=== PATIENT | male | born 1950 | race Caucasian/White ===

== ENCOUNTER 2019-11-06 17:05 | Inpatient (IN) | payer OTHER ==
[~2019-11-06] VITALS: Ht 185.4 cm; Wt 127.0 kg
[2019-11-06 17:14] VITALS: BP 111/60
[2019-11-06 17:48] LABS: HEMATOCRIT 45.9 % (42.0-52.0); HEMOGLOBIN 16.2 gm/dL (14.0-18.0); MCH 31.8 pg (26.0-34.0); MCHC 35.2 g/dL (28.0-37.0); MCV 90.1 fL (80.0-100.0); MPV 8.2 fl. (7.2-11.1); NUCLEATED RBCS 0 /100WBC; PLATELET COUNT* 264 thou/uL (150-400); RBC 5.09 mil/uL (4.50-6.00); RDW-CV 13.3 % (10.5-14.5); WBC 19.3 thou/uL (4.0-11.0)
[2019-11-06 17:48] LABS: URINE BILIRUBIN NEGATIVE (Negative); URINE BLOOD 1+ (Negative); URINE CLARITY CLEAR; URINE COLOR YELLOW; URINE GLUCOSE-RANDOM NEGATIVE (Negative); URINE KETONES NEGATIVE (Negative); URINE LEUKOCYTES-REFLEX NEGATIVE (Negative); URINE NITRITE-REFLEX NEGATIVE (Negative); URINE PROTEIN 1+ (Negative); URINE SPECIFIC GRAVITY 1.025 (1.005-1.030)
[2019-11-06 17:56] LABS: SQUAMOUS 0-3 Few /LPF (0-3)
[2019-11-06 17:57] LABS: CRYSTALS None Seen /LPF (None Seen); HYALINE CASTS 0-3 Few /LPF (None Seen); URINE RBC 0-2 Rare /HPF (0-2); URINE WBC-REFLEX 0-5 Rare /HPF (0-5)
[2019-11-06 17:58] LABS: BACTERIA-REFLEX 1-9 Few /HPF (None Seen); MUCUS 0-3 Light strn/LPF (None Seen)
[2019-11-06 18:01] LABS: CALCIUM 8.6 mg/dL (8.5-10.1); POTASSIUM 3.2 mmol/L (3.5-5.1)
[2019-11-06 18:05] LABS: INFLUENZA A ANTIGEN Negative (Negative); INFLUENZA B ANTIGEN Negative (Negative)
[2019-11-06 18:06] LABS: ALBUMIN 3.3 g/dL (3.4-5.0); TOTAL PROTEIN 7.2 g/dL (6.4-8.2)
[2019-11-06 18:21] LABS: ABSOLUTE LYMPHOCYTES 0.8 thou/uL (0.8-5.3); ABSOLUTE MONOCYTES 0.8 thou/uL (0.0-1.2); ABSOLUTE NEUTROPHILS 17.8 thou/uL (1.6-8.1); PLATELET ESTIMATE ADEQUATE
[2019-11-06 20:34] VITALS: BP 114/67
[2019-11-06 21:00] VITALS: BP 111/72
[2019-11-07] VITALS (19 sets, daily range): BP systolic 109–149; BP diastolic 47–89
[2019-11-07 09:54] LABS: INR 1.1; PROTIME 11.6 Seconds (9.20-11.50)
--- NOTE | 2019-11-07 12:33 | EKG ---
[place] [address] ELECTROCARDIOGRAM REPORT Name: CHERELLE SIDDIQI Room: [address] ADM IN M.R.#: [id number] Admission: 11/06/19 Attend Phys: Cande Morillo, Discharge: Date of : 50 Date of Service: 11/06/19 1725 Report #: [id number] THIS REPORT FOR: //name// [facility] ED Test Date: 2019-11-06 Test Time: 17:25:00 Pat Name: CHERELLE SIDDIQI Department: Room: [facility] Gender: M Acquisition Editor: MS : 1950 Requested By: Charley Barba Order Number: [id number] MD: Jonathon Engel Measurements Intervals [place] Rate: 115 P: 45 ID: [id number] QRS: 59 QRSD: 89 T: 24 QT: 336 QTc: 465 Interpretive Statements Sinus tachycardia Low voltage, precordial leads RSR' in V1 or V2, right VCD or RVH Borderline T abnormalities, anterior leads Baseline wander in lead(s) II,III,aVF No previous ECG available for comparison Electronically Signed On 11-07-2019 12:32:19 CDT by Jonathon Engel [email or web address] <ELECTRONICALLY SIGNED> By: Jonathon Engel MD, [facility] 11/07/19 1232 1725 1725 Jonathon Engel MD, [facility] /EPI
[2019-11-08 00:32] VITALS: BP 137/86
[2019-11-08 03:59] LABS: HEMATOCRIT 41.3 % (42.0-52.0); MCH 31.1 pg (26.0-34.0); MCHC 34.4 g/dL (28.0-37.0); MCV 90.3 fL (80.0-100.0); MPV 8.6 fl. (7.2-11.1); RBC 4.57 mil/uL (4.50-6.00); RDW-CV 13.3 % (10.5-14.5); WBC 16.3 thou/uL (4.0-11.0)
[2019-11-08 04:00] VITALS: BP 122/74
[2019-11-08 04:25] LABS: ALBUMIN 2.7 g/dL (3.4-5.0); CALCIUM 8.1 mg/dL (8.5-10.1); CREATININE 0.8 mg/dL (0.6-1.3); MAGNESIUM 1.8 mg/dL (1.8-2.4); POTASSIUM 3.6 mmol/L (3.5-5.1); TOTAL BILIRUBIN 0.8 mg/dL (<0.1-1.0); TOTAL PROTEIN 6.9 g/dL (6.4-8.2)
[2019-11-08 04:30] LABS: HEMOGLOBIN 14.2 gm/dL (14.0-18.0)
[2019-11-08 08:00] VITALS: BP 142/89
[2019-11-08 12:12] VITALS: BP 152/95
[2019-11-08 16:00] VITALS: BP 136/81
[2019-11-08 19:50] VITALS: BP 151/92
[2019-11-09 05:18] LABS: ABSOLUTE BASOPHILS 0.1 thou/uL (0.0-0.2); ABSOLUTE EOSINOPHILS 0.2 thou/uL (0.0-0.7); ABSOLUTE LYMPHOCYTES 1.9 thou/uL (0.8-5.3); ABSOLUTE MONOCYTES 0.8 thou/uL (0.0-1.2); ABSOLUTE NEUTROPHILS 9.2 thou/uL (1.6-8.1); BASOPHILS 0.7 %; EOSINOPHILS 1.3 %; HEMATOCRIT 37.7 % (42.0-52.0); HEMOGLOBIN 13.3 gm/dL (14.0-18.0); LYMPHOCYTES 15.9 %; MCH 31.2 pg (26.0-34.0); MCHC 35.2 g/dL (28.0-37.0); MCV 88.6 fL (80.0-100.0); MONOCYTES 6.7 %; MPV 7.7 fl. (7.2-11.1); NUCLEATED RBCS 0 /100WBC; PLATELET COUNT* 276 thou/uL (150-400); POLYS 75.4 %; RBC 4.25 mil/uL (4.50-6.00); RDW-CV 13.2 % (10.5-14.5); WBC 12.2 thou/uL (4.0-11.0)
[2019-11-09 05:39] LABS: ALBUMIN 2.2 g/dL (3.4-5.0); CREATININE 0.7 mg/dL (0.6-1.3); POTASSIUM 3.2 mmol/L (3.5-5.1); PREALBUMIN 9.9 mg/dL (18.0-35.7); TOTAL BILIRUBIN 0.6 mg/dL (<0.1-1.0)
[2019-11-09 07:57] VITALS: BP 157/74
--- NOTE | 2019-11-09 08:01 | CON ---
[address] [address] CONSULTATION Name: CHERELLE SIDDIQI Room: [address] IN M.R.#: [id number] Admission: 11/06/19 Attend Phys: Cande Morillo MD Discharge: Date of : 50 Report #: [id number] THIS REPORT FOR: //name// cc: Yenni Dasilva Michelle RNP ~ THIS REPORT FOR: //name// CC: Cande Dasilva DATE OF SERVICE: 11/08/2019 INFECTIOUS DISEASE CONSULTATION ATTENDING PHYSICIAN: Dr. Morillo. REASON FOR EVALUATION: Diverticular abscess. HISTORY OF PRESENT ILLNESS: Chart reviewed, patient examined. This is a 68-year-old without significant medical history who developed abdominal pain. He was concerned about a recent fall described as lower abdominal sore type; however, it worsened. He did have a mild degree of anorexia. He has been having some loose stools due to lack of resolution. He did present to the Emergency Room. CT was performed, which showed probable perforated sigmoid diverticulitis with a 14.4 x 6.9 x 4.4 cm fluid collection within the pelvis, suspected abscess. He underwent percutaneous drainage of roughly 20 mL. Cultures are pending. He was empirically started on piperacillin and tazobactam. At this point, he denies fevers. He does have some mild dyspnea and some cough. He is a smoker. He is not encephalopathic. ALLERGIES: None known. MEDICATIONS: Currently include famotidine, nicotine patch, piperacillin and tazobactam, p.r.n. analgesics and antiemetics. PAST MEDICAL HISTORY: He is noted to have a single kidney, previous right knee surgery. SOCIAL HISTORY: Smokes cigarettes for a number of years. Occasional ethanol. No illicit drug use. FAMILY HISTORY: Noncontributory. ____, temperature 97.7, pulse 90, respirations 16, blood pressure 142/89. SKIN: Warm, dry, no rashes. HEENT: Normocephalic. [place] [address] CONSULTATION Name: CHERELLE SIDDIQI Room: [address] IN [facility]#: [id number] Admission: 11/06/19 Attend Phys: Cande Morillo MD Discharge: Date of : 50 Report #: [id number] NECK: Supple. LUNGS: Scattered crackles, occasional wheeze. HEART: Regular. I do not appreciate murmur. ABDOMEN: Soft. It is tender in lower quadrants. GENITOURINARY AND RECTAL: Deferred. LABORATORY DATA: Urinalysis ____. Glucose of 113, albumin 3.3, total protein 7.2. Troponin less than 0.06. Lactic acid initially 3.1, repeat was 1.4. CT abdomen and pelvis as described above suspected diverticular abscess, it is confirmed, single kidney, abscess on the left, moderate to severe coronary artery calcifications. ASSESSMENT: Diverticular abscess. At this point, we will continue empiric therapy, piperacillin and tazobactam would give us good coverage for presumed aerobic, anaerobic etiology in the event of lack of improvement, could add antifungal as well. We will await those results likely need followup imaging at some point to confirm resolution. We will add incentive spirometry and encourage activity. <ELECTRONICALLY SIGNED> By: Nicolas Goodrich MD 11/09/19 0801 1130 1422Jobree Goodrich MD /nt
[2019-11-09 16:00] VITALS: BP 155/91
[2019-11-09 21:17] VITALS: BP 158/69
[2019-11-10 03:30] VITALS: BP 140/86
[2019-11-10 04:30] VITALS: BP 148/82
[2019-11-10 05:25] LABS: ABSOLUTE BASOPHILS 0.1 thou/uL (0.0-0.2); ABSOLUTE EOSINOPHILS 0.1 thou/uL (0.0-0.7); ABSOLUTE MONOCYTES 1.3 thou/uL (0.0-1.2); ABSOLUTE NEUTROPHILS 10.3 thou/uL (1.6-8.1); BASOPHILS 0.9 %; EOSINOPHILS 0.6 %; HEMATOCRIT 39.9 % (42.0-52.0); HEMOGLOBIN 13.9 gm/dL (14.0-18.0); LYMPHOCYTES 14.3 %; MCH 30.9 pg (26.0-34.0); MCHC 34.9 g/dL (28.0-37.0); MCV 88.7 fL (80.0-100.0); MONOCYTES 9.3 %; MPV 7.8 fl. (7.2-11.1); NUCLEATED RBCS 0 /100WBC; PLATELET COUNT* 327 thou/uL (150-400); POLYS 74.9 %; RDW-CV 12.9 % (10.5-14.5); WBC 13.8 thou/uL (4.0-11.0)
[2019-11-10 05:47] LABS: ALBUMIN 2.3 g/dL (3.4-5.0); CALCIUM 8.4 mg/dL (8.5-10.1); CREATININE 0.7 mg/dL (0.6-1.3); POTASSIUM 3.1 mmol/L (3.5-5.1); TOTAL BILIRUBIN 0.7 mg/dL (<0.1-1.0); TOTAL PROTEIN 6.2 g/dL (6.4-8.2)
[2019-11-10 07:30] VITALS: BP 137/45
[2019-11-10 15:30] VITALS: BP 124/72
[2019-11-10 23:00] VITALS: BP 150/92
[2019-11-11 07:50] VITALS: BP 139/87
[2019-11-11 15:43] VITALS: BP 131/81
[2019-11-11 21:00] VITALS: BP 164/80
[2019-11-12 08:00] VITALS: BP 150/93
[2019-11-12 11:39] LABS: ABSOLUTE BASOPHILS 0.1 thou/uL (0.0-0.2); ABSOLUTE EOSINOPHILS 0.3 thou/uL (0.0-0.7); ABSOLUTE LYMPHOCYTES 3.3 thou/uL (0.8-5.3); ABSOLUTE MONOCYTES 1.4 thou/uL (0.0-1.2); BASOPHILS 0.7 %; EOSINOPHILS 1.9 %; HEMATOCRIT 40.7 % (42.0-52.0); HEMOGLOBIN 13.8 gm/dL (14.0-18.0); MCH 30.4 pg (26.0-34.0); MCHC 33.8 g/dL (28.0-37.0); MCV 90.1 fL (80.0-100.0); MONOCYTES 9.3 %; MPV 7.9 fl. (7.2-11.1); NUCLEATED RBCS 0 /100WBC; POLYS 66.1 %; RBC 4.52 mil/uL (4.50-6.00); WBC 15.1 thou/uL (4.0-11.0)
[2019-11-12 11:43] LABS: PLATELET COUNT* 422 thou/uL (150-400)
[2019-11-12 12:04] LABS: CALCIUM 8.4 mg/dL (8.5-10.1); CREATININE 0.7 mg/dL (0.6-1.3); POTASSIUM 3.7 mmol/L (3.5-5.1)
[2019-11-12 14:10] VITALS: BP 150/93
[2019-11-12] MEDS ORDERED: ZOSYN 3.3753.375 GM IV (14:16)
== END 2019-11-12 16:35 | disposition home health service (06) | DRG 871 ==
LOC: M.ERS 17:05 → M.TBA-ER 19:19 → M.2W 19:19 → M.3W 11-08 17:50
PROVIDERS: Internal Medicine; Nurse Practitioner Family; Surgery; ADMIT Internal Medicine
PROC: 0W9H30Z Drainage of Retroperitoneum with Drainage Device, Percutaneous Approach (ICD-10-PCS; principal; 2019-11-07)
PROC: 5A09357 Assistance with Respiratory Ventilation, Less than 24 Consecutive Hours, Continuous Positive Airway Pressure (ICD-10-PCS; principal; 2019-11-07)
PROC: 05HY33Z Insertion of Infusion Device into Upper Vein, Percutaneous Approach (ICD-10-PCS; 2019-11-12)
PROC: B54MZZA Ultrasonography of Right Upper Extremity Veins, Guidance (ICD-10-PCS; 2019-11-12)
DX: A41.50 Gram-negative sepsis, unspecified (principal); J96.01 Acute respiratory failure with hypoxia; K65.1 Peritoneal abscess; K57.20 Diverticulitis of large intestine with perforation and abscess without bleeding; Q60.0 Renal agenesis, unilateral; F17.210 Nicotine dependence, cigarettes, uncomplicated; E87.6 Hypokalemia; Z72.89 Other problems related to lifestyle; Z79.899 Other long term (current) drug therapy

== ENCOUNTER → 2019-12-01 | Outpatient (CLI) | payer OTHER ==
[~2019-12-01] MED LIST: ZOSYN 3.3753.375 GM IV
== END ==
LOC: M.CT 07:08
DX: K57.20 Diverticulitis of large intestine with perforation and abscess without bleeding (principal)